=== PATIENT | female | born 1975 | race Caucasian/White ===

== ENCOUNTER → 2016-11-11 | Outpatient (CLI) | payer BC ==
[~2016-11-11] MED LIST: ATROVENT I0.5 MG/2.5 INH; CATAPRES0.2 M1 PO; DELTASONE20 MG PO; DELTASONE5 MG PO; DEXAMETHASONE SUB-Q; EFFEXOR XR75 MG PO; LEVAQUIN500 MG PO; PHENERGAN-DM120 ML PO; PRINIVIL20 MG PO; PROAIR HFA8.5 GM INH; PROVENTIL2.5 MG/0.5 INH; REMERON15 M2 PO; REQUIP0.5 MG PO; SEROQUEL300 MG PO; SYMBICORT 80-10.2 GM INH; TYLENOL325 MG PO; VITAMIN D400 UNIT PO; ZITHROMAX250 MG
== END | disposition disaster alternative care site (69) ==
LOC: GAMB 22:20 → GMED 22:20
DX: R07.9 Chest pain, unspecified (principal); R10.9 Unspecified abdominal pain; M79.602 Pain in left arm
CPT/HCPCS: J2405